=== PATIENT | female | born 1975 ===

== ENCOUNTER 2024-07-04 09:36 | Outpatient (AMB) | payer OTHER, SELFPAY ==
--- NOTE | 2024-07-04 09:47 | A.OFFVIS_ITS ---
Vital Signs 07/04/24 10:01 Height 5 ft 2.99 in Weight 251 lb BMI 44.5 BP 128/80 Blood Pressure Location Rt brachial Position Sitting Pulse 72 Pulse Source Pulse Oximeter Pulse Oximetry (%) 96 Oxygen Delivery Method Room Air Intake Visit Reasons: Routine Colonoscopy screening Intake Note: NEW PATIENT for symptomatic, initial screening. + FMHx. Chief Complaint; Pt denies any GI concerns at this time. Pt does report having very brief GI sx related to GLP 1 adjustment but has since subsided. Msw Required: No Allergies No Known Allergies Allergy (Verified 07/04/24 09:47) HPI HPI Routine Colonoscopy screening: Details: 49 year old? female here today for pre colonoscopy screening.? Patient was sent to us by her PCP.? This is her first colonoscopy screening.? Patient denies any gastrointestinal symptoms in the past or at present.? Denies any personal or family history of gastrointestinal disease, colon polyps, or CRC.? Denies history of difficulty with sedation or anesthesia in the past.? Negative for history of sleep apnea.? Denies any history of cardiac, renal, pulmonary, or hepatic disease.?? No history of infectious? diseases like hepatitis A, B, C, HIV or tuberculosis.? Patient is not on any anticoagulation. Patient is on Zepbound for weight loss [facility] Surgical History Umbilical hernia (~2008) Uterine fibroid (~04/2024) Hx of cholecystectomy (~2006) History of tubal ligation (~2007) History of ankle surgery Family History Maternal Grandfather Colon cancer Review of Systems Const Denies weight gain and Denies weight loss ENT Reports no additional complaints, Denies dysphagia and Denies odynophagia Card Reports no additional complaints Resp Reports no additional complaints GI Denies abdominal pain, Denies belching, Denies melena, Denies bloating, Denies change in bowel habits, Denies dysphagia, Denies excessive flatus, Denies dyspepsia, Denies heartburn, Denies diarrhea, Denies loose stools, Denies nausea, Denies odynophagia and Denies vomiting Musc Reports no additional complaints Neuro Reports no additional complaints Psych Reports no additional complaints Endo Reports no additional complaints Physical Exam Const General: healthy appearing and no acute distress Nutritional Appearance: obese Orientation/consciousness: patient oriented x3 Resp Effort & Inspection: normal respiratory effort, able to speak in complete sentences, no tracheal deviation and symmetric chest movement Auscultation: clear to auscultation bilaterally Cardio Rate: regular rate GI Inspection: Yes normal to inspection, No distended and Yes obesity Palpation (GI): Soft to palpation, not firm, nontender and No hepatosplenomegaly present Auscultation: normal bowel sounds General: Yes no CVA tenderness Back/Spine/Pelvis Back: no CVA tenderness Skin General skin exam: elasticity normal, turgor normal and dry skin Neuro General: patient oriented x3 Psych Appearance: grossly normal Mental Status: mental status grossly normal Assessment & Plan Assessment & Plan (1) Screen for colon cancer: Code(s): Z12.11 - Encounter for screening for malignant neoplasm of colon Plan Patient denies any GI, cardiac or respiratory symptoms.? Denies any issues with anesthesia in the past.? Denies any history of sleep apnea.? No history infectious diseases in the past or present.? Not on any anticoagulation therapy.? No family or personal history of colon cancer or polyps.? Patient denies melena, hematochezia, unintentional weight loss or ribbon like stools.? Discussed at length the pre-procedure,? prep, diet & medications as well as what to expect prior, during and after the procedure.?? Stressed the importance of good bowel prep.? Recommended the use of Vaseline or Calmoseptine OTC & baby wipes with bowel movements to promote comfort.? ?Patient verbalizes understanding and agrees to plan of care.? She was given the opportunity to ask questions and all questions answered.? We will see her after the procedure.? Patient is on Zepbound for weight loss Medications: New bisacodyl (Dulcolax (bisacodyl)) take 4 tabs at noon the day before your colonoscopy 20 mg (4 x 5 mg) PO ONCE 1 day 4 tabs 0RF Z12.11 - Encounter for screening for malignant neoplasm of colon polyethylene glycol 3350 (Miralax) As directed by gastroenterology department at [facility] 238 grams PO ONCE 238 grams 0RF Z12.11 - Encounter for screening for malignant neoplasm of colon Coding Level of Care Code New Pt Level 3 (74141) Diagnoses Screen for colon cancer Z12.11 Time Spent (min) 40 Comment 30 minutes spent with patient and additional 10 minutes spent reviewing her records
[2024-07-04 10:01] VITALS: BP 128/80; PULSE 72; O2SAT 96; BMI 44.5
--- OUTSIDE RECORDS SUMMARY | 2024-07-04 10:41 | XMS_ITS | Referral Summary ---
Author Organization [facility] Address [address] [place] [address] Care Team Providers Care Traffic Manager Name Role Phone Griffin Lynchncer Melina Primary Care Provider [phone] Allergies No known active allergies Medications acetaminophen (TYLENOL) 325 mg tablet Take 2 tablets (650 mg total) by mouth every 6 hours. As your pain improves, you can take this as needed. 9 Active calcium carbonate-vitamin D3 500 mg-200 units tablet Take 1 tablet by mouth 2 times a day with meals. Dzlc-bet-uwdey er supplement to help with bone health and healing. Please take this for 12 weeks. 9 Active ondansetron (ZOFRAN) 4 mg tablet TAKE 1 TABLET BY MOUTH EVERY 8 HOURS NEEDED FOR NAUSEA OR VOMITING. 90 tablet 9 Active gabapentin (NEURONTIN) 300 mg capsule TAKE 1 CAPSULE BY MOUTH 3 TIMES A DAY. 90 capsule 9 Active ibuprofen (MOTRIN) 800 mg tablet Take 1 tablet (800 mg total) by mouth 3 times a day as needed for pain. 90 tablet 5 9 Active ondansetron ODT (ZOFRAN ODT) 8 mg disintegrating tablet Dissolve 1 tablet (8 mg total) in the mouth every 8 hours as needed for nausea or vomiting. 12 tablet 9 Active Active Problems Problem Noted Date Diagnosed Date Morbid obesity with BMI of 45.0-49.9, adult 11/2018 Anxiety 07/24/2018 Bimalleolar fracture of left ankle, open type I or II, initial encounter 07/22/2018 Immunizations Immunization Administration Dates Next Due Tetanus and Diphtheria Toxoi ds, Adsorbed, Preservative Free (2 Lf of Tetanus Toxoid and 2 Lf of Diphtheria Toxoid) 07/22/2018 Social History Tobacco Use Types Packs/Day Years Used Date Smoking Tobacco: Never Smokeless Tobacco: Never Alcohol Use Standard Drinks/Week Comments Yes 4 (1 standard drink = 0.6 oz pur e alcohol) Comments No Sex and Gender Information Value Date Recorded Sex Assigned at Female 03/08/2019 9:32 AM EST Legal Sex Female 1:25 PM EDT Gender Identity Female 03/08/2019 9:32 AM EST Sexual Orientation Straight 03/08/2019 9: 32 AM EST Last Filed Vital Signs Vital Sign Reading Time Taken Comments Blood Pressure 102/64 03/21/2019 1:00 PM EST Pulse 63 03/21/2019 1:00 PM EST Temperature 36.6 ??C (97.9 ??F) 03/21/2019 7:47 AM ES T Respiratory Rate 14 03/21/2019 1:00 PM EST Oxygen Saturation 98% 03/21/2019 1:00 PM EST Inhaled Oxygen Concentration - - Weight 123.4 kg (272 lb) 03/08/2019 9:10 AM EST Height 161.3 cm (5' 3.5 ) 03/08/2019 9:10 AM EST Body Mass Index 47.43 03/08/2019 9:10 AM EST Plan of Treatment Not on file Medical Devices Implanted Type Area Cost Controller Device Identifier Shelf Expiration Date Model / Serial / Lot Plate Lc-Dcp Stainless Steel 7 Hole [id number] - [id number] Implanted:Qty: 1 on 07/22/2018 by Junaid Salazar MD at [facility] Plate Left: Ankle DEPNONO 223.57 / / Screw Cortex Self-Tapping Stainless Steel [id number] - [id number] Implanted:Qty: 2 on 07/22/2018 by Junaid Salazar MD at [facility] Screw Left: Ankle DEPNONO 204.812 / / Screw Cortex Self-Tapping Stainless Steel [id number] - [id number] Implanted:Qty: 2 on 07/22/2018 by Junaid Salazar MD at [facility] Screw Left: Ankle DEPNONO 204.814 / / Screw Cortex Self-Tapping Stainless Steel [id number] - [id number] Implanted:Qty: 1 on 07/22/2018 by Junaid Salazar MD at [facility] Screw Left: Ankle DEPUY [employer] 204.816 / / Screw Cortex Self-Tapping Stainless Steel [id number] - [id number] Implanted:Qty: 1 on 07/22/2018 by Junaid Salazar MD at [facility] Screw Left: Ankle DEPUY [employer] 204.818 / / Explanted Type Area Cost Controller Device Identifier Shelf Expiration Date Model / Serial / Lot Screw Cortex Self-Tapping Stainless Steel [id number] - [id number] Implanted:Qty: 1 on 07/22/2018 by Junaid Salazar MD at [facility] Explanted:Qty: 1 on 03/21/2019 by Junaid Salazar MD at [facility] Screw Left: Ankle DEPUY [employer] 204.850 / / Screw Cortex Self-Tapping Stainless Steel [id number] - [id number] Implanted:Qty: 1 on 07/22/2018 by Junaid Salazar MD at [facility] Explanted:Qty: 1 on 03/21/2019 by Junaid Salazar MD at [facility] Screw Left: Ankle DEPUY SYNTHES [employer] 204.850 / / Insurance [facility] HMO/POS Advance Directives * Full Code (Latest Code Status on File) Date Activated Date Inactivated Comments 07/22/2018 1:29 PM 07/24/2018 3:47 PM Healthcare Agents on File Name Relationship Healthcare Agent [facility] Mraielle Larkin Significant Other Health Care Agent Care Teams Traffic Manager Relationship Specialty Start Date End Date Domenico Lynch PCP - General Internal Medicine 02/17/21
--- OUTSIDE RECORDS SUMMARY | 2024-07-04 10:41 | XMS_ITS | Clinical Summary ---
Author Organization [facility] Address [address] [place] [address] Care Team Providers Care Transport Assistant Name Role Phone Griffin Lynchncer Melina Primary Care Provider [phone] Allergies No known active allergies Medications acetaminophen (TYLENOL) 325 mg tablet Take 2 tablets (650 mg total) by mouth every 6 hours. As your pain improves, you can take this as needed. 9 Active calcium carbonate-vitamin D3 500 mg-200 units tablet Take 1 tablet by mouth 2 times a day with meals. Uspw-upr-scnjk er supplement to help with bone health [...] and 2 Lf of Diphtheria Toxoid) 07/22/2018 Family History Relation Name Status Comments Daughter Alive Father Alive Mother Alive Son Alive Social History Tobacco Use Types Packs/Day Years [...] 03/08/2019 9:10 AM EST Plan of Treatment Health Maintenance Due Date Last Done Comments Cervical Cancer Screening 1977 Cologuard 1977 Colon Cancer Screening 1977 Colonoscopy 1977 FOBT / Fit Test 1977 HIV Screening 1977 HPV and Pap Smear 1977 Pap Smear 1977 Sigmoidoscopy 1977 Hepatitis B Vaccines (1 of 3 - 19+ 3-dose series) 1996 COVID-19 Vaccine (2023-2 5 season) 2023 01/08/2021, 12/16/2020 Influenza Vaccine (#1) 2023 Alcohol/Substance Use Screening 04/18/2024 DTaP,Tdap,and Td Vaccines (3 - Td or Tdap) 07/22/2028 07/22/2018, 02/23/2015, 07/22/2009 RSV Vaccine (60+ years old a nd patients) (1 - 1-dose 75+ series) 2052 Pneumococcal Vaccine: Pediatric (0-5 Years) and At-Risk Patients (6-50 Years) Aged Out No longer eligible based on patient's age to complete this topic Medical Devices Implanted Type Area Talent Recruiter Device Identifier Shelf Expiration Date Model / Serial / Lot Plate Lc-Dcp Stainless Steel 7 Hole [id number] - [id number] Implanted:Qty: 1 on 07/22/2018 by Junaid Salazar MD at [facility] Plate Left: Ankle DEPUY [employer] 223.57 / / Screw Cortex Self-Tapping Stainless Steel [id number] - [id number] Implanted:Qty: 2 on 07/22/2018 by Junaid Salazar MD at [facility] Screw Left: Ankle DEPUY [employer] 204.812 / / Screw Cortex Self-Tapping Stainless Steel [id number] - [id number] Implanted:Qty: 2 on 07/22/2018 by Junaid Salazar MD at [facility] Screw Left: Ankle DEPUY SYNTHES [employer] 204.814 / / Screw Cortex Self-Tapping Stainless Steel [id number] - [id number] Implanted:Qty: 1 on 07/22/2018 by Junaid Salazar MD at [facility] Screw Left: Ankle DEPUY SYNTHES [employer] 204.816 / / Screw Cortex Self-Tapping Stainless Steel [id number] - [id number] Implanted:Qty: 1 on 07/22/2018 by Junaid Salazar MD at [facility] Screw Left: Ankle DEPUY [employer] 204.818 / / Explanted Type Area Talent Recruiter Device Identifier Shelf Expiration Date Model / Serial / Lot Screw Cortex Self-Tapping Stainless Steel [id number] - [id number] Implanted:Qty: 1 on 07/22/2018 by Junaid Salazar MD at [facility] Explanted:Qty: 1 on 03/21/2019 by Junaid Salazar MD at [facility] Screw Left: Ankle DEPUY [employer] 204.850 / / Screw Cortex Self-Tapping Stainless Steel [id number] - [id number] Implanted:Qty: 1 on 07/22/2018 by Junaid Salazar MD at [facility] Explanted:Qty: 1 on 03/21/2019 by Junaid Salazar MD at [facility] Screw Left: Ankle DEPUY [employer] 204.850 / / Insurance [facility] HMO/POS Advance Directives * Full Code (Latest Code Status on File) Date Activated Date Inactivated Comments 07/22/2018 1:29 PM 07/24/2018 3:47 PM Healthcare Agents on File Name Relationship Healthcare Agent Relationshi p Communication Yovany Larkin Significant Other Health Care Agent Care Teams Transport Assistant Relationship Specialty Start Date End Date Domenico Lynch PCP - General Internal Medicine 02/17/21
--- OUTSIDE RECORDS SUMMARY | 2024-07-04 10:41 | XMS_ITS | Clinical Summary ---
Author Organization [facility] Address [address] [place] [address] Care Team Providers Care Assembly Machine Set Up Mechanic Name Role Phone Domenico Lynch MD Primary Care Provider Allergies No known active allergies Medications LORazepam (ATIVAN) 1 MG tablet Take 1 mg by mouth every 6 (six) hours if needed for anxiety 04/05/2019 Active Active Problems No known active problems Immunizations Name Administration Dates Next Due COVID-19, mRNA (Pfizer Pre F all 2022) Monovalent, 30 mcg/0.3 ml 01/08/2021,12/16/2020 Covid-19, mRNA (Pfizer Pre F all 2022) Monovalent, 30 mcg/0.3 ml sheila-sucrose (12+) 07/01/2021 Td (adult), adsorbed 07/22/2018 Social History Tobacco Use Types Packs/Day Years Used Date Smoking Tobacco: Never Assessed Comments Unknown Sex and Gender Information Value Date Recorded Sex Assigned at Not on file Legal Sex Female 11:14 AM EDT Gender Identity Not on file Sexual Orientation Not on file Last Filed Vital Signs Vital Sign Reading Time Taken Comments Blood Pressure - - Pulse 98 12/28/2019 11:21 AM EDT Temperature 35.9 ??C (96.7 ??F) 12/28/2019 11:21 AM E DT Respiratory Rate - - Oxygen Saturation 99% 12/28/2019 11:21 AM EDT Inhaled Oxygen Concentration - - Weight - - Height - - Body Mass Index - - Plan of Treatment Health Maintenance Due Date Last Done Comments Hepatitis C Screening 1977 Pap Smear 1993 Hep B (1 of 3 - 19+ 3-dose series) 1996 Mammogram/Breast Imaging 2017 DTaP/Tdap/Td (1 - Tdap) 07/23/2018 07/22/2018 COVID-19 Vaccine (4 - 2024-2 5 season) 2023 07/01/2021, 01/08/2021, 12/16/2020 Influenza (#1) 2023 Zoster (Shingrix) (1 of 2) 2027 HPV Vaccine Aged Out No longer eligi ble based on patient's age to complete this topic Hep A Aged Out No longer eligi ble based on patient's age to complete this topic Hib Aged Out No longer eligi ble based on patient's age to complete this topic Meningococcal ACWY Aged Out No longer eligible based on patient's age to complete this topic Pneumococcal Aged Out No longer eligi ble based on patient's age to complete this topic Insurance * Guarantor: [employer] Account Type Relation to Patient Date of Phone Billing Address Personal/Family [address] [place] [address] [employer] FEE FOR SERVICE HMO * Guarantor: [facility] Account Type Relation to Patient Date of Phone Billing Address [employer] [address] [place] [id number] Care Teams Assembly Machine Set Up Mechanic Relationship Specialty Start Date End Date Domenico Lynch MD [facility] [address] [place], [place] [id number] PCP - General Internal Medicine 12/28/19
== END 2024-07-04 10:31 | disposition home or self-care (01) ==
LOC: HO.HGI 09:36
PROVIDERS: PCP Internal Medicine; Visit Provider Nurse Practitioner Family
DX: Z01.818 Encounter for other preprocedural examination (principal); Z12.11 Encounter for screening for malignant neoplasm of colon
CPT/HCPCS: 99202

== ENCOUNTER → 2024-07-04 09:36 | Outpatient (BNVA) | payer OTHER, SELFPAY | PROVIDERS: PCP Internal Medicine; Visit Provider Nurse Practitioner Family ==